=== PATIENT | female | born 1985 | race Two or more races ===

== ENCOUNTER 2017-04-13 17:47 | Inpatient (IN) | payer BC ==
[~2017-04-13] VITALS: Ht 162.6 cm; Wt 64.9 kg
[2017-04-13] MEDS ORDERED: ONDANSETRON 2MG/ML, 2ML IVPush ONE (18:30)
[2017-04-13] MEDS ORDERED: SODIUM CHLORIDE 0.9% 1,000ML IVBOLUS ONE (18:30)
[2017-04-13] MEDS ORDERED: MORPHINE SULFATE 4 MG/ML, 1ML ONE ×3 (18:36→20:01)
[2017-04-13] MEDS ORDERED: ONDANSETRON 2MG/ML, 2ML ONE (18:37)
[2017-04-13] MEDS: MORPHINE SULFATE 4 MG/ML, 1ML IVPush PRN ×2 (18:41→19:25)
[2017-04-13 18:48] LABS: HEMATOCRIT 35.1 % (34.6-47.8); HEMOGLOBIN 11.7 g/dL (11.7-16.4); WHITE BLOOD COUNT 11.9 x10^3/uL (3.4-10)
[2017-04-13 18:59] LABS: ASPARTATE AMINO TRANSFERASE 38 U/L (15-37); BLOOD UREA NITROGEN 9 mg/dL (7-18)
[2017-04-13] MEDS ORDERED: MORPHINE SULFATE 4 MG/ML, 1ML IVPush ONE ×2 (20:30→21:00)
[2017-04-13] MEDS ORDERED: KETOROLAC 30 MG/1 ML ONE (21:11)
[2017-04-13] MEDS ORDERED: KETOROLAC 30 MG/1 ML IVPush ONE (21:30)
[2017-04-13] MEDS ORDERED: POLYETHYLENE GLYCOL 17 GM PACKET PO PRN (23:30)
[2017-04-13] MEDS ORDERED: ONDANSETRON 2MG/ML, 2ML IVPush PRN (23:30)
[2017-04-13] MEDS ORDERED: morphine SULFATE 10 MG/ML, 1ML IVPush PRN (23:30)
[2017-04-13] MEDS ORDERED: CEFTRIAXONE PMX 1GM/50ML 50 ML IV SCH (23:30)
[2017-04-13] MEDS ORDERED: hydrALAzine 20 MG/ML, 1ML IVPush PRN (23:30)
[2017-04-13] MEDS ORDERED: BISACODYL 10 MG SUPP PR PRN (23:30)
[2017-04-13] MEDS ORDERED: CEFTRIAXONE PMX 1GM/50ML 50 ML ONE (23:40)
[2017-04-14 00:36] VITALS: BP 106/71
[2017-04-14] MEDS ORDERED: METRONIDAZOLE PMX 500MG/100ML 100 ML IV SCH (01:00)
[2017-04-14] MEDS: OXYcodone IR 5MG TABLET PO PRN ×2 (01:01→22:20)
[2017-04-14] MEDS: SODIUM CHLORIDE 0.9% 1,000 ML IV SCH ×3 (01:02→16:43)
[2017-04-14 06:20] LABS: HEMOGLOBIN 10.4 g/dL (11.7-16.4); WHITE BLOOD COUNT 4.9 x10^3/uL (3.4-10)
[2017-04-14 06:47] LABS: ASPARTATE AMINO TRANSFERASE 439 U/L (15-37); BLOOD UREA NITROGEN 9 mg/dL (7-18)
[2017-04-14 06:50] VITALS: BP 103/59
[2017-04-14] MEDS: PIPERACILLIN/TAZO/PMX 3.375GM 50 ML IV SCH ×3 (09:20→23:22)
[2017-04-14] MEDS: SENNA/DOCUSATE TABLET PO SCH (09:20)
[2017-04-14] MEDS ORDERED: FLU VACC QS2017-18 (36MOS+) UP/PF 0.5 ML IM-VACC ONE (10:30)
[2017-04-14 13:13] VITALS: BP 98/62
[2017-04-14 19:07] VITALS: BP 110/71
[2017-04-15 01:35] VITALS: BP 104/70
[2017-04-15] MEDS: PIPERACILLIN/TAZO/PMX 3.375GM 50 ML IV SCH ×3 (05:00→16:44)
[2017-04-15 06:34] LABS: ASPARTATE AMINO TRANSFERASE 196 U/L (15-37); BLOOD UREA NITROGEN 5 mg/dL (7-18)
[2017-04-15 06:46] VITALS: BP 94/55
[2017-04-15] MEDS ORDERED: FENTANYL PF 100 MCG/2ML ONE ×3 (07:55→09:19)
[2017-04-15] MEDS ORDERED: MIDAZOLAM 1 MG/ML, 2ML ONE (07:55)
[2017-04-15] MEDS: SENNA/DOCUSATE TABLET PO SCH (07:55)
[2017-04-15] MEDS ORDERED: BUPIVACAINE/PF 0.5% ONE (08:20)
[2017-04-15] MEDS ORDERED: EPINEPHRINE 1 MG/ML, 1ML ONE (08:21)
[2017-04-15] MEDS ORDERED: PROPOFOL 10 MG/ML, 20ML ONE (08:26)
[2017-04-15] MEDS ORDERED: NEOSTIGMINE 1 MG/ML, 10ML ONE (08:26)
[2017-04-15] MEDS ORDERED: ONDANSETRON 2MG/ML, 2ML ONE (08:26)
[2017-04-15] MEDS ORDERED: SUCCINYLCHOLINE 20 MG/ML, 10ML ONE (08:26)
[2017-04-15] MEDS ORDERED: ROCURONIUM 10 MG/ML ONE (08:26)
[2017-04-15] MEDS ORDERED: GLYCOPYRROLATE 0.2MG/1ML, 5ML ONE (08:26)
[2017-04-15] MEDS ORDERED: DEXAMETHASONE 4 MG/ML, 1ML ONE ×2 (08:35)
[2017-04-15] MEDS ORDERED: CEFAZOLIN 1,000 MG ONE ×3 (08:35)
[2017-04-15] MEDS ORDERED: BUPIVACAINE/PF-EPI 0.5% 1:200K INFIL ONE (08:41)
[2017-04-15] MEDS ORDERED: OXYcodone 5 MG/5 ML ORAL.SOL UDC PO PRN (09:00)
[2017-04-15] MEDS ORDERED: METOCLOPRAMIDE 5 MG/ML, 2ML IV PRN (09:00)
[2017-04-15] MEDS ORDERED: LABETALOL 5MG/ML, 20ML IV PRN (09:00)
[2017-04-15] MEDS ORDERED: HYDROmorphone 1 MG/ML, 1ML IV PRN (09:00)
[2017-04-15] MEDS ORDERED: ONDANSETRON 2MG/ML, 2ML IVPush PRN (09:00)
[2017-04-15] MEDS ORDERED: ACETAMINOPHEN 325 MG TABLET PO PRN (09:00)
[2017-04-15] MEDS ORDERED: hydrALAzine 20 MG/ML, 1ML IV PRN (09:00)
[2017-04-15] MEDS ORDERED: OXYcodone 5 MG/5 ML ORAL.SOL UDC ONE (09:19)
[2017-04-15] MEDS: FENTANYL PF 100 MCG/2ML IV PRN ×2 (09:22→09:28)
[2017-04-15] MEDS ORDERED: SODIUM CHLORIDE FLUSH 3ML SYRINGE IVF SCH (11:00)
[2017-04-15] MEDS: MORPHINE SULFATE 4 MG/ML, 1ML IV PRN ×2 (11:43→17:36)
[2017-04-15] MEDS ORDERED: TRAM50TA2 PO (12:00)
[2017-04-15] MEDS ORDERED: OXYC1TAB7 PO (12:00)
[2017-04-15] MEDS ORDERED: POLY17PO5 PO (12:00)
[2017-04-15] MEDS ORDERED: CIPR500T87 PO (12:12)
[2017-04-15] MEDS ORDERED: ONDA4TAB13 SL (12:15)
[2017-04-15] MEDS: OXYcodone/APAP 5/325MG TABLET PO PRN ×2 (12:33→18:31)
[2017-04-15 14:39] VITALS: BP 105/59
[2017-04-15 18:43] VITALS: BP 106/64
== END 2017-04-15 19:00 | disposition home or self-care (01) | DRG 418 ==
LOC: ED 21:03 → EDIP 23:00 → 3NE 04-14 00:28
PROVIDERS: ADMIT Internal Medicine; ATTEND Internal Medicine
PROC: 0FT44ZZ Resection of Gallbladder, Percutaneous Endoscopic Approach (ICD-10-PCS; principal; 2017-04-15 09:00)
DX: K80.10 Calculus of gallbladder with chronic cholecystitis without obstruction (principal); N39.0 Urinary tract infection, site not specified
CPT/HCPCS: 36415; 71020; 76700; 80053; 80061; 81001; 83036; 83690; 83735; 84439; 84443; 84703; 85025; 87040; 87086; 88304; 90686; 96361; 96374; 96375; 96376; J0171; J0690; J0696; J1100; J1885; J2250; J2405; J2543; J2704; J2710; J3010; J3490; J0330; J7030